=== PATIENT | female | born 1950 | race Caucasian/White ===

== ENCOUNTER → 2019-04-12 | Outpatient (CLI) | payer MEDICARE ==
[2019-04-12 14:00] LABS: Basophils % (A) 1 %; Eosinophils # (A) 0.2 k/uL (0-0.7); Eosinophils % (A) 3 %; HCT 40.1 % (34.0-46.0); Lymphocytes # (A) 0.9 k/uL (1.0-4.8); Lymphocytes % (A) 14 %; MCH 31.5 pg (25.0-35.0); MCV 90.1 fL (80.0-100.0); Mean Platelet Volume 8.8; Monocytes # (A) 0.3 k/uL (0-1.0); Monocytes % (A) 5 %; Neutrophils # (A) 4.8 k/uL (1.3-7.7); Neutrophils % (A) 75 %; Platelet Count 177 k/uL (150-450); Poikilocytosis Slight; RBC 4.45 m/uL (3.80-5.40); RDW 13.4 % (11.5-15.5); WBC 6.4 k/uL (3.8-10.6)
[2019-04-12 19:09] LABS: African American GFR (CKD) 104.6 (60.0-200.0); Albumin 4.8 g/dL (3.80-4.90); Albumin/Globulin Ratio 3.2 (1.60-3.17); Anion Gap 10.7 mmol/L (4.00-12.00); BUN/Creat Ratio 28.57 Ratio (12.00-20.00); Calcium 9.4 mg/dL (8.7-10.3); Carbon Dioxide 27.3 mmol/L (21.6-31.8); Globulin 1.5 g/dL (1.6-3.3); Non-African American GFR(CKD) 90.3 (60.0-200.0); Total Bilirubin 1.6 mg/dL (0.2-1.2); Total Protein 6.3 g/dL (6.2-8.2)
--- NOTE | 2019-04-15 17:53 | PE ---
Nuclear medicine PET/CT HISTORY: Follicular lymphoma, subsequent Patient received 10.7 mCi F-18 FDG intravenously in delayed scanning was performed from the skull bas e to the mid thighs. Localization and attenuation correction CT scan was performed. No comparisons available. Neck and chest: There is no suspicious hypermetabolic uptake present. No evident cervical or supracla vicular adenopathy. Inflammatory changes present within the left maxillary sinus greater than right. There is inflammatory change in the frontal sinus and ethmoid air cells. No evident lung mass. No ple ural or pericardial effusion. No mediastinal, axillary, or hilar adenopathy. There are coronary arter y calcifications present. ABDOMEN: No suspicious uptake. No retroperitoneal adenopathy. No evident pelvic adenopathy. No ascite s. No evident liver mass. There may be fatty infiltration of the liver. The spleen is not enlarged. P robable splenule present adjacent to the spleen. No evident mesenteric adenopathy. Aorta shows normal caliber. Osseous structures show facet arthropathy, degenerative disc change at the lower lumbar spine. No gurinder picious uptake. IMPRESSION: No evident adenopathy or suspicious hypermetabolic uptake is evident.
== END ==
LOC: LABWHC1 13:12
PROVIDERS: ATTEND Internal Medicine Hematology & Oncology
DX: C82.01 Follicular lymphoma grade I, lymph nodes of head, face, and neck (principal)
CPT/HCPCS: 80053; 83615; 85025; 78815; 36415; A9552

== ENCOUNTER → 2019-10-18 | Outpatient (CLI) | payer MEDICARE ==
[2019-10-18 08:52] LABS: Basophils % (A) 1 %; Eosinophils # (A) 0.2 k/uL (0-0.7); Eosinophils % (A) 3 %; HCT 43.1 % (34.0-46.0); HGB 14.5 gm/dL (11.4-16.0); Lymphocytes # (A) 0.7 k/uL (1.0-4.8); Lymphocytes % (A) 11 %; MCH 30.8 pg (25.0-35.0); MCHC 33.6 g/dL (31.0-37.0); MCV 91.5 fL (80.0-100.0); Mean Platelet Volume 8.4; Monocytes # (A) 0.4 k/uL (0-1.0); Monocytes % (A) 6 %; Neutrophils % (A) 78 %; Platelet Count 161 k/uL (150-450); RBC 4.71 m/uL (3.80-5.40); RDW 13.3 % (11.5-15.5); WBC 6.4 k/uL (3.8-10.6)
[2019-10-18 09:08] LABS: ALT 27 U/L (4-34); AST 26 U/L (14-36); African American GFR (CKD) >90 (>60 ml/min/1.73 sqM); Albumin 4.4 g/dL (3.5-5.0); Alkaline Phosphatase 99 U/L (38-126); Anion Gap 9 mmol/L; Blood Urea Nitrogen 16 mg/dL (7-17); Calcium 9.2 mg/dL (8.4-10.2); Carbon Dioxide 26 mmol/L (22-30); Chloride 104 mmol/L (98-107); Glucose 128 mg/dL (74-99); LDH 426 U/L (313-618); Non-African American GFR(CKD) >90 (>60 ml/min/1.73 sqM); Potassium 4.2 mmol/L (3.5-5.1); Sodium 139 mmol/L (137-145); Total Bilirubin 1.2 mg/dL (0.2-1.3); Total Protein 6.8 g/dL (6.3-8.2)
--- NOTE | 2019-10-22 20:15 | PE ---
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 S tatus post radiation to the neck in 2017 and most recent chemotherapy in May 2019. TECHNIQUE: Following the intravenous administration of 10.0 mCi of F-18 FDG, whole body images are performed from the skull base to the midthigh. Images are reviewed on the computer in the coronal, a xial, and sagittal planes. Reconstructed rotating images are created on independent workstation and reviewed on the computer. A localization and attenuation correction CT is performed in conjunction with the PET scan. Glucose level: 126 mg/dL COMPARISON: 04/12/2019 FINDINGS: PET: Physiologic FDG uptake within the neck. Physiologic FDG uptake within the chest. Average liver SUV: 2.7 Some focal intense activity within the right paramedian abdominal pelvic junction corresponds to the expected course of the right ureter. No discrete lymphadenopathy or suspicious soft tissue in this lo cation. Otherwise, physiologic FDG uptake within the abdomen and pelvis. ATTENUATION CORRECTION CT: Near-complete opacification of the bilateral maxillary sinuses and moderate mucosal thickening throug hout the frontal sinuses and ethmoid air cells. Globes are intact. Mastoid air cells appear clear. No cervical lymphadenopathy. Heart normal size without pericardial effusion. Scattered three-vessel coronary artery calcifications are present. Bovine configuration to the aortic arch. No thoracic lymphadenopathy by CT size criteri a. Mild breathing motion artifacts. No consolidation or pleural effusion. Tiny hiatal hernia. Mild stool burden. Hilar splenule. Mild to moderate atherosclerotic calcification s infrarenal abdominal aorta. Mild to moderate stool burden. No pericolonic inflammatory change. Patulous left inguinal canal. Bladder collapsed. A few pelvic phleboliths on either side. Uterus and both ovaries are visualized. No abnormal fluid collection in the pelvis or pelvic lymphadenopathy. Bones: Mild degenerative change at the hips. Facet arthropathy lower lumbar spine. No osseous destruc tive process. IMPRESSION: 1. No suspicious hypermetabolic uptake or evident lymphadenopathy in the neck, chest, abdomen, or pel vis. 2. Worsening severe chronic maxillary sinus disease. Tiny hiatal hernia.
== END | disposition home or self-care (01) ==
LOC: RADPETMAIN 08:26
PROVIDERS: ATTEND Internal Medicine Hematology & Oncology
DX: J32.0 Chronic maxillary sinusitis (principal); K44.9 Diaphragmatic hernia without obstruction or gangrene; C82.01 Follicular lymphoma grade I, lymph nodes of head, face, and neck
CPT/HCPCS: 80053; 83615; 85025; 78815; A9552

== ENCOUNTER → 2021-09-24 | Outpatient (CLI) | payer MEDICARE ==
--- NOTE | 2021-09-24 16:19 | BD ---
EXAMINATION TYPE: Axial Bone Density DATE OF EXAM: 09/24/2021 COMPARISON: NONE CLINICAL HISTORY: 71 year old Female. ICD-10 CODE: Z13.820 ENCOUNTER FOR SCREENING FOR OSTEOPOROSIS Height: 159.0 Weight: 65 FRAX RISK QUESTIONS: Alcohol (3 or more units per day): no Family History (Parent hip fracture): no Glucocorticoids (More than 3mos): no (Ex: prednisone, prednisolone, methylprednisolone, dexamethasone, and hydrocortisone). History of Fracture in Adulthood: no Secondary Osteoporosis: 1. Type 1 Diabetes: no 2. Hyperthyroidism: no 3. Menopause before 45: no 4. Malnutrition: no 5. Chronic liver disease: no Rheumatoid Arthritis: no Current Tobacco Use: no RISK FACTORS HISTORY OF: Surgery to Spine/Hip(right/left)/Wrist (right/left): no Family History of Osteoporosis: no Active: yes Diet low in dairy products/other sources of calcium: yes Postmenopausal woman: yes Lost more than 2 inches in height since high school: no MEDICATIONS: type two diabetic meds Additional History: EXAM MEASUREMENTS: Bone mineral densitometry was performed using the [employer] System. Bone mineral density as measured about the Lumbar spine is: ----- L1-L4(G/cm2): 1.109 T Score Values are as follows: ----- L1: -0.8 ----- L2: -1.5 ----- L3: -0.7 ----- L4: 0.3 ----- L1-L4: -0.6 Bone mineral density : baseline Bone mineral density about the R hip (g/cm2): 1.005 Bone mineral density about the L hip (g/cm2): 1.047 T Score values are as follows: -----R Neck: -0.2 -----L Neck: 0.1 -----R Total: -0.6 -----L Total: -0.3 Bone mineral density : baseline FRAX%s: The graph provided illustrates a 7.4% chance for a major osteoporotic fx and a 0.4% chance fo r the hips probability for fx in 10 years time. IMPRESSION: Normal (Values between +1 and -1 indicate normal bone mass). Consider repeating this study in 5 year s or sooner if there is some new clinical indication. NOTE: T-SCORE=SD OF THE YOUNG ADULT MEAN.
== END | disposition home or self-care (01) ==
LOC: RADBDWWP 10:31
PROVIDERS: ATTEND Family Medicine
DX: Z13.820 Encounter for screening for osteoporosis (principal); M85.88 Other specified disorders of bone density and structure, other site
CPT/HCPCS: 77080

== ENCOUNTER 2022-01-19 10:19 | Day surgery (SDC) | payer MEDICARE ==
[2022-01-18 11:08] VITALS: BMI 25.7
[~2022-01-19 10:19] MED LIST: LIDOCAINE 1% (10MG/ML) FOR IV START INTRADERMA PRN
[2022-01-19] MEDS: LACTATED RINGERS 1,000 ML IV SCH ×2 (11:26→12:18)
[2022-01-19 11:38] VITALS: TEMP 97.5
[2022-01-19 11:53] LABS: Glucose,Whole Blood 141 mg/dL (70-110)
[2022-01-19] MEDS ORDERED: PROPOFOL 10 MG/ML 20 ML VIAL IV ONE (12:19)
[2022-01-19] MEDS ORDERED: LIDOCAINE 2% INJ 20 MG/ML (2 ML VIAL) ONE (12:19)
--- NOTE | 2022-01-19 12:35 | P.PCN ---
Date of Procedure: 01/19/22 Procedure(s) Performed: BRIEF HISTORY: Patient is a 71-year-old pleasant white femalescheduled for an elective colonoscopy as a part of evaluation of prior history of colon polyps. PROCEDURE PERFORMED: Colonoscopy. PREOPERATIVE DIAGNOSIS: History of colon polyps. IV sedation per Anesthesia. PROCEDURE: After informed consent was obtained, the patient, was brought into the endoscopy unit. IV sedation was administered by Anesthesia under continuous monitoring. Digital rectal examination was normal. Initially the Olympus CF-160 flexible video colonoscope was then inserted in the rectum, gradually advanced into the cecum without any difficulty. Careful examination was performed as the scope was gradually being withdrawn. Ileocecal valve and the appendiceal orifice were visualized and appeared normal. Prep was excellent. Mucosa of the cecum, ascending colon, transverse colon, descending colon, sigmoid colon, and rectum appeared normal. Retroflexion was performed in the rectum and small internal hemorrhoids ere seen. The patient tolerated the procedure well. IMPRESSION: Normal-appearing colon from rectum to cecum with no evidence of colorectal neoplasia. Small internal hemorrhoids. RECOMMENDATIONS: Findings of this examination were discussed with the patient as well as her family. She was advised to have a repeat screening colonoscopy in 10 years.
[2022-01-19 12:40] VITALS: RESP 16
[2022-01-19 12:58] VITALS: BP 126/81; PULSE 65
== END 2022-01-19 13:10 | disposition home or self-care (01) ==
LOC: ORWHC2ENDO 10:19
PROVIDERS: ATTEND Internal Medicine Gastroenterology
DX: Z12.11 Encounter for screening for malignant neoplasm of colon (principal); K64.8 Other hemorrhoids; Z86.010 Personal history of colon polyps; J30.2 Other seasonal allergic rhinitis; R55 Syncope and collapse; M19.90 Unspecified osteoarthritis, unspecified site; C85.90 Non-Hodgkin lymphoma, unspecified, unspecified site; Z88.8 Allergy status to other drugs, medicaments and biological substances; Z91.040 Latex allergy status; Z88.2 Allergy status to sulfonamides; Z79.899 Other long term (current) drug therapy
CPT/HCPCS: G0105; J2704; J2001; 45378